=== PATIENT | female | born 1980 | race Caucasian/White ===

== ENCOUNTER 2024-06-13 13:49 | Outpatient (CLI) | payer MEDICARE, MEDICAID, SELFPAY | END 2024-06-13 13:50 | disposition home or self-care (01) | LOC: WOUND 13:51 | PROVIDERS: PCP Student in an Organized Health Care Education/Training Program; Referring Provider Nurse Practitioner; Visit Provider Physician Assistant Surgical | DX: L89.324 Pressure ulcer of left buttock, stage 4 (principal); Q05.2 Lumbar spina bifida with hydrocephalus; R21 Rash and other nonspecific skin eruption; G82.20 Paraplegia, unspecified; G83.4 Cauda equina syndrome; M41.20 Other idiopathic scoliosis, site unspecified; Z99.3 Dependence on wheelchair | CPT/HCPCS: 11043; 11046; G0463 ==

== ENCOUNTER 2024-06-22 14:28 | Outpatient (CLI) | payer MEDICARE, MEDICAID, SELFPAY | END 2024-06-22 14:29 | disposition home or self-care (01) | LOC: WOUND 14:29 | PROVIDERS: PCP Student in an Organized Health Care Education/Training Program; Visit Provider Surgery | DX: L89.324 Pressure ulcer of left buttock, stage 4 (principal); Q05.2 Lumbar spina bifida with hydrocephalus; G57.10 Meralgia paresthetica, unspecified lower limb; Z99.3 Dependence on wheelchair | CPT/HCPCS: 11042 ==

== ENCOUNTER 2024-06-27 14:03 | Outpatient (CLI) | payer MEDICARE, MEDICAID, SELFPAY | END 2024-06-27 14:04 | disposition home or self-care (01) | LOC: WOUND 14:03 | PROVIDERS: PCP Student in an Organized Health Care Education/Training Program; Visit Provider Physician Assistant Surgical | DX: L89.324 Pressure ulcer of left buttock, stage 4 (principal); Q05.2 Lumbar spina bifida with hydrocephalus; M41.20 Other idiopathic scoliosis, site unspecified; G83.4 Cauda equina syndrome; G82.20 Paraplegia, unspecified; Z99.3 Dependence on wheelchair | CPT/HCPCS: 11043 ==

== ENCOUNTER 2024-07-04 10:23 | Outpatient (CLI) | payer MEDICARE, MEDICAID, SELFPAY | END 2024-07-04 10:24 | disposition home or self-care (01) | PROVIDERS: PCP Student in an Organized Health Care Education/Training Program; Visit Provider Nurse Practitioner Family | DX: L89.324 Pressure ulcer of left buttock, stage 4 (principal); Q05.2 Lumbar spina bifida with hydrocephalus; G83.4 Cauda equina syndrome; M41.20 Other idiopathic scoliosis, site unspecified; G82.20 Paraplegia, unspecified; Z99.3 Dependence on wheelchair | CPT/HCPCS: 11042; 97605 ==

== ENCOUNTER 2024-07-12 13:45 | Outpatient (CLI) | payer MEDICARE, MEDICAID, SELFPAY | END 2024-07-12 13:46 | disposition home or self-care (01) | LOC: WOUND 07-26 15:35 | PROVIDERS: PCP Student in an Organized Health Care Education/Training Program; Visit Provider Physician Assistant Surgical | DX: L89.324 Pressure ulcer of left buttock, stage 4 (principal); Q05.2 Lumbar spina bifida with hydrocephalus; Z99.3 Dependence on wheelchair; G82.20 Paraplegia, unspecified | CPT/HCPCS: 11042; 97605 ==

== ENCOUNTER 2024-07-18 14:02 | Outpatient (CLI) | payer MEDICARE, MEDICAID, SELFPAY | END 2024-07-18 14:03 | disposition home or self-care (01) | LOC: WOUND 14:03 | PROVIDERS: PCP Student in an Organized Health Care Education/Training Program; Visit Provider Physician Assistant Surgical | DX: L89.324 Pressure ulcer of left buttock, stage 4 (principal); Q05.2 Lumbar spina bifida with hydrocephalus; G83.4 Cauda equina syndrome; Z99.3 Dependence on wheelchair; G57.10 Meralgia paresthetica, unspecified lower limb; G82.20 Paraplegia, unspecified | CPT/HCPCS: 11043 ==

== ENCOUNTER 2024-07-25 13:55 | Outpatient (CLI) | payer MEDICARE, MEDICAID, SELFPAY | END 2024-07-25 13:56 | disposition home or self-care (01) | LOC: WOUND 13:55 | PROVIDERS: PCP Student in an Organized Health Care Education/Training Program; Visit Provider Physician Assistant Surgical | DX: L89.324 Pressure ulcer of left buttock, stage 4 (principal); Q05.2 Lumbar spina bifida with hydrocephalus; G83.4 Cauda equina syndrome; Z99.3 Dependence on wheelchair | CPT/HCPCS: 11043; 97605 ==

== ENCOUNTER 2024-08-01 14:15 | Outpatient (CLI) | payer MEDICARE, MEDICAID, SELFPAY | END 2024-08-01 14:16 | disposition home or self-care (01) | LOC: WOUND 14:15 | PROVIDERS: PCP Student in an Organized Health Care Education/Training Program; Visit Provider Physician Assistant Surgical | DX: L89.324 Pressure ulcer of left buttock, stage 4 (principal); Q05.2 Lumbar spina bifida with hydrocephalus; N31.9 Neuromuscular dysfunction of bladder, unspecified; Z99.3 Dependence on wheelchair | CPT/HCPCS: 11043; 97605 ==

== ENCOUNTER 2024-08-08 13:56 | Outpatient (CLI) | payer MEDICARE, MEDICAID, SELFPAY | END 2024-08-08 13:57 | disposition home or self-care (01) | LOC: WOUND 13:56 | PROVIDERS: PCP Student in an Organized Health Care Education/Training Program; Visit Provider Physician Assistant | DX: L89.324 Pressure ulcer of left buttock, stage 4 (principal); Q05.2 Lumbar spina bifida with hydrocephalus; G83.4 Cauda equina syndrome; Z99.3 Dependence on wheelchair | CPT/HCPCS: 97597; 97605 ==

== ENCOUNTER 2024-08-15 14:00 | Outpatient (CLI) | payer MEDICARE, MEDICAID, SELFPAY | END 2024-08-15 14:01 | disposition home or self-care (01) | LOC: WOUND 14:00 | PROVIDERS: PCP Student in an Organized Health Care Education/Training Program; Visit Provider Physician Assistant | DX: L89.324 Pressure ulcer of left buttock, stage 4 (principal); Q05.2 Lumbar spina bifida with hydrocephalus; G83.4 Cauda equina syndrome; Z99.3 Dependence on wheelchair | CPT/HCPCS: 97597; 97605 ==

== ENCOUNTER 2024-08-22 13:40 | Outpatient (CLI) | payer MEDICARE, MEDICAID, SELFPAY | END 2024-08-22 13:41 | disposition home or self-care (01) | LOC: WOUND 13:41 | PROVIDERS: PCP Student in an Organized Health Care Education/Training Program; Visit Provider Physician Assistant Surgical | DX: L89.324 Pressure ulcer of left buttock, stage 4 (principal); Q05.2 Lumbar spina bifida with hydrocephalus; G83.4 Cauda equina syndrome; Z99.3 Dependence on wheelchair | CPT/HCPCS: 11043; 97605 ==

== ENCOUNTER 2024-08-29 13:55 | Outpatient (CLI) | payer MEDICARE, MEDICAID, SELFPAY | END 2024-08-29 13:56 | disposition home or self-care (01) | LOC: WOUND 13:56 | PROVIDERS: PCP Student in an Organized Health Care Education/Training Program; Visit Provider Physician Assistant Surgical | DX: L89.324 Pressure ulcer of left buttock, stage 4 (principal); Q05.2 Lumbar spina bifida with hydrocephalus; G83.4 Cauda equina syndrome; Z99.3 Dependence on wheelchair | CPT/HCPCS: 11042 ==

== ENCOUNTER 2024-09-05 13:39 | Outpatient (CLI) | payer MEDICARE, MEDICAID, SELFPAY | END 2024-09-05 13:40 | disposition home or self-care (01) | LOC: WOUND 13:40 | PROVIDERS: PCP Student in an Organized Health Care Education/Training Program; Visit Provider Physician Assistant | DX: L89.324 Pressure ulcer of left buttock, stage 4 (principal); Q05.2 Lumbar spina bifida with hydrocephalus; G83.4 Cauda equina syndrome | CPT/HCPCS: 97597; 97605 ==

== ENCOUNTER 2024-09-09 10:11 | Outpatient (CLI) | payer MEDICARE, MEDICAID, SELFPAY | END 2024-09-09 10:12 | disposition home or self-care (01) | LOC: WOUND 10:11 | PROVIDERS: PCP Student in an Organized Health Care Education/Training Program; Visit Provider Nurse Practitioner Family | DX: L89.324 Pressure ulcer of left buttock, stage 4 (principal); L89.311 Pressure ulcer of right buttock, stage 1; Q05.2 Lumbar spina bifida with hydrocephalus; G83.4 Cauda equina syndrome; Z99.3 Dependence on wheelchair | CPT/HCPCS: 97605; G0463 ==

== ENCOUNTER 2024-09-19 14:03 | Outpatient (CLI) | payer MEDICARE, MEDICAID, SELFPAY | END 2024-09-19 14:04 | disposition home or self-care (01) | LOC: WOUND 14:04 | PROVIDERS: PCP Student in an Organized Health Care Education/Training Program; Visit Provider Physician Assistant Surgical | DX: L89.324 Pressure ulcer of left buttock, stage 4 (principal); Q05.2 Lumbar spina bifida with hydrocephalus; G83.4 Cauda equina syndrome; Z99.3 Dependence on wheelchair; G82.20 Paraplegia, unspecified | CPT/HCPCS: 11042 ==

== ENCOUNTER 2024-09-26 14:08 | Outpatient (CLI) | payer MEDICARE, MEDICAID, SELFPAY | END 2024-09-26 14:09 | disposition home or self-care (01) | LOC: WOUND 14:08 | PROVIDERS: PCP Student in an Organized Health Care Education/Training Program; Visit Provider Family Medicine | DX: L89.324 Pressure ulcer of left buttock, stage 4 (principal); Q05.2 Lumbar spina bifida with hydrocephalus; G57.10 Meralgia paresthetica, unspecified lower limb; Z99.3 Dependence on wheelchair | CPT/HCPCS: 11042 ==

== ENCOUNTER 2024-10-03 13:55 | Outpatient (CLI) | payer MEDICARE, MEDICAID, SELFPAY | END 2024-10-03 13:56 | disposition home or self-care (01) | LOC: WOUND 13:56 | PROVIDERS: PCP Student in an Organized Health Care Education/Training Program; Visit Provider Physician Assistant | DX: L89.324 Pressure ulcer of left buttock, stage 4 (principal); Q05.2 Lumbar spina bifida with hydrocephalus; G83.4 Cauda equina syndrome; Z99.3 Dependence on wheelchair | CPT/HCPCS: 97597 ==

== ENCOUNTER 2024-10-10 13:51 | Outpatient (CLI) | payer MEDICARE, MEDICAID, SELFPAY | END 2024-10-10 13:52 | disposition home or self-care (01) | LOC: WOUND 13:51 | PROVIDERS: PCP Student in an Organized Health Care Education/Training Program; Visit Provider Physician Assistant | DX: L89.324 Pressure ulcer of left buttock, stage 4 (principal); Q05.2 Lumbar spina bifida with hydrocephalus; G83.4 Cauda equina syndrome; G81.90 Hemiplegia, unspecified affecting unspecified side; Z99.3 Dependence on wheelchair | CPT/HCPCS: 97597 ==

== ENCOUNTER 2024-10-24 13:51 | Outpatient (CLI) | payer MEDICARE, MEDICAID, SELFPAY | END 2024-10-24 13:52 | disposition home or self-care (01) | LOC: WOUND 13:52 | PROVIDERS: PCP Student in an Organized Health Care Education/Training Program; Visit Provider Physician Assistant Surgical | DX: L89.324 Pressure ulcer of left buttock, stage 4 (principal); Q05.2 Lumbar spina bifida with hydrocephalus; G83.4 Cauda equina syndrome; G82.20 Paraplegia, unspecified; Z99.3 Dependence on wheelchair | CPT/HCPCS: 11042 ==

== ENCOUNTER 2024-11-03 14:44 | Outpatient (CLI) | payer MEDICARE, MEDICAID, SELFPAY | END 2024-11-03 14:45 | disposition home or self-care (01) | LOC: WOUND 14:44 | PROVIDERS: PCP Student in an Organized Health Care Education/Training Program; Visit Provider Nurse Practitioner Family | DX: Q05.2 Lumbar spina bifida with hydrocephalus (principal); G83.4 Cauda equina syndrome; G82.20 Paraplegia, unspecified; Z99.3 Dependence on wheelchair | CPT/HCPCS: G0463 ==